=== PATIENT | male | born 1945 | race Caucasian/White ===

== ENCOUNTER → 2017-12-25 | Outpatient (CLI) | payer MEDICARE, OTHER ==
[~2017-12-25] MED LIST: ACET-1966 PO; DIA5 PO; DUTA0.5C14 PO; GLUC-232 PO; LEVO-85 PO; LEVO750T44 PO; LOR75 PO; METH4TAB57 PO; MULT1TAB64 PO; NAPR-744 PO; NO ROUTINE MEDS; OXYC1TAB54 PO; PNEI IJ; PNEU0.5D3 IM; SULF-198 PO; TRA50 PO
[2017-12-25 16:40] LABS: PLATELET COUNT, AUTOMATED 257 K/uL (150-450)
== END ==
LOC: LAB 11:22
PROVIDERS: ATTEND Nurse Practitioner Primary Care
DX: R30.0 Dysuria (principal)
CPT/HCPCS: 36415; 81001; 82040; 82247; 82310; 82374; 82435; 82565; 82947; 84075; 84132; 84153; 84155; 84295; 84450; 84460; 84520; 85025; 87088

== ENCOUNTER → 2018-03-21 | Outpatient (REF) | payer MEDICARE, OTHER ==
[2018-03-21 11:34] LABS: PLATELET COUNT, AUTOMATED 291 K/uL (150-450)
== END ==
PROVIDERS: ATTEND Family Medicine
DX: M10.9 Gout, unspecified (principal)
CPT/HCPCS: 82040; 82247; 82310; 82374; 82435; 82565; 82947; 84075; 84132; 84155; 84295; 84450; 84460; 84520; 84550; 85025; 86140